=== PATIENT | female | born 1965 | race Caucasian/White ===

== ENCOUNTER 2016-08-06 | Observation (INO) | payer BC ==
[2016-08-05 22:27] LABS: HEMOGLOBIN 11.6 gm/dl (12.3-15.3); RED BLOOD COUNT 4.09 M/UL (4.00-5.10); WHITE BLOOD COUNT 6.5 K/UL (4.5-11.0)
[~2016-08-06] MED LIST: BRILINTA90 MG PO; CRESTOR10 MG PO; FISH OIL 1,0001 EACH PO; FISH OIL CONCE1 EACH PO; LO-DOSE ASPIRIN81 MG PO; LOPRESSOR 25 MG25 MG PO; MULTIVITAMINS1 EAC1 PO; NITROSTAT 0.40.4 MG SL
[2016-08-06 00:28] LABS: BUN/CREATININE RATIO 10 (0-10)
[2016-08-06 04:09] LABS: HEMOGLOBIN 11.3 gm/dl (12.3-15.3); RED BLOOD COUNT 3.92 M/UL (4.00-5.10); WHITE BLOOD COUNT 7.8 K/UL (4.5-11.0)
[2016-08-06] MEDS ORDERED: TOPROL XL 25 MG25 MG PO (13:01)
[2016-08-06] MEDS ORDERED: IMDUR ER TAB 3030 MG PO (13:01)
== END 2016-08-06 14:45 | disposition home or self-care (01) ==
PROVIDERS: Physician Assistant; ADMIT Internal Medicine
DX: I25.119 Atherosclerotic heart disease of native coronary artery with unspecified angina pectoris (principal); I21.19 ST elevation (STEMI) myocardial infarction involving other coronary artery of inferior wall; I10 Essential (primary) hypertension; E78.5 Hyperlipidemia, unspecified; R00.1 Bradycardia, unspecified; Z87.891 Personal history of nicotine dependence; Z82.49 Family history of ischemic heart disease and other diseases of the circulatory system; Z88.0 Allergy status to penicillin; Z88.2 Allergy status to sulfonamides; Z79.82 Long term (current) use of aspirin; Z79.899 Other long term (current) drug therapy; Z90.710 Acquired absence of both cervix and uterus; Z90.89 Acquired absence of other organs
CPT/HCPCS: 36415; 71010; 80053; 80061; 82550; 82553; 83874; 84439; 84443; 84484; 85025; 85027; 85610; 85730; 93005; 96365; 96366; 96374; 96375; 99285; G0378; J1644; J7030